=== PATIENT | female | born 1990 | race Caucasian/White ===

== ENCOUNTER 2023-02-18 06:17 | Inpatient (IN) | payer BC ==
[~2023-02-18] VITALS: Ht 154.9 cm; Wt 76.7 kg
[2023-02-18] MEDS ORDERED: NALBUPHINE HCL 10 MG/ML AMP IVP PRN (06:45)
[2023-02-18] MEDS ORDERED: LR 1,000 ML IV SCH (06:45)
[2023-02-18] MEDS ORDERED: LABETALOL HCL 100 MG TABLET PO ONE (06:45)
[2023-02-18] MEDS ORDERED: OXYTOCIN/0.9 % SODIUM CHLORIDE 1,000 ML IV SCH ×2 (06:45→11:30)
[2023-02-18] MEDS ORDERED: TERBUTALINE SULFATE 1 MG/ML VIAL SUBCUT ONE (06:45)
[2023-02-18] MEDS ORDERED: LR 1,000 ML IV ONE (06:45)
[2023-02-18] MEDS ORDERED: AMPICILLIN SODIUM 2 GM VIAL ONE (06:57)
[2023-02-18] MEDS ORDERED: AMPICILLIN SODIUM 2 GM in NS 100 ML IV ONE (07:00)
[2023-02-18 07:20] LABS: BASOPHILS % (AUTO) 0.3 % (0.0-2.0); EOSINOPHILS % (AUTO) 0.2 % (0.0-4.0); HEMATOCRIT 39.9 % (36-48); HEMOGLOBIN 13.4 g/dL (12.0-16.0); LYMPHOCYTES # (AUTO) 1.7 K/uL (1.0-5.5); LYMPHOCYTES % (AUTO) 12.2 % (20.5-51.5); MEAN CORPUSCULAR HEMOGLOBIN 30 pg (27-31); MEAN CORPUSCULAR HGB CONC 34 % (32-36); MEAN CORPUSCULAR VOLUME 89 fL (79.0-98.0); MONOCYTES # (AUTO) 0.8 K/uL (0.0-1.0); NEUTROPHILS # (AUTO) 11.2 K/uL (1.8-7.7); NEUTROPHILS % (AUTO) 81.3 % (40.0-70.0); PLATELET COUNT (AUTO) 132 K/uL (130-430); RED CELL DISTRIBUTION WIDTH 14.5 % (9.0-15.0); WHITE BLOOD COUNT (AUTO) 13.8 K/uL (4.8-10.8)
[2023-02-18] MEDS ORDERED: FENT2mCg/mL-ROPIVA0.2%/NS EPID 200 ML EP SCH (07:30)
[2023-02-18] MEDS ORDERED: fentaNYL CITRATE/PF 100 MCG/2 ML AMP ONE (07:36)
[2023-02-18] MEDS ORDERED: ROPIVACAINE HCL/PF 0.2% 200 ML ONE (07:36)
[2023-02-18] MEDS ORDERED: LIGHT MINERAL OIL 10 ML VIAL MC ONE (07:53)
[2023-02-18] MEDS ORDERED: NALOXONE HCL 0.4 MG/ML AMP (NARCAN) ONE (07:53)
[2023-02-18] MEDS ORDERED: LIDOCAINE PF 1% 30ML(POUR BTL) INJ ONE (07:53)
[2023-02-18] MEDS ORDERED: ePHEDrine sulfate 50 MG/ML VIAL ONE (10:09)
[2023-02-18] MEDS ORDERED: ePHEDrine sulfate 50 MG/ML VIAL IVP ONE (10:30)
[2023-02-18] MEDS ORDERED: AMPICILLIN SODIUM 1 GM in NS 50 ML IV SCH (11:00)
[2023-02-18] MEDS ORDERED: OXYCODONE/ACETAMINOPHEN 5-325 TABLET PO PRN (11:30)
[2023-02-18] MEDS ORDERED: LANOLIN 7 GM OINT. TP PRN (11:30)
[2023-02-18] MEDS ORDERED: ANUSOL 1 EA SUPP.RECT (PREPARATION H) RC PRN (11:30)
[2023-02-18] MEDS ORDERED: DERMOPLAST SPRAY TP PRN (11:30)
[2023-02-18] MEDS ORDERED: HYDROCORTISONE 0.5% CREAM 28.4 GM CREAM.GM. TP PRN (11:30)
[2023-02-18] MEDS ORDERED: OXYTOCIN/0.9 % SODIUM CHLORIDE 1,000 ML IV ONE (11:30)
[2023-02-18] MEDS ORDERED: WITCH HAZEL LEAF 1 MED.PAD MED.PAD TP PRN (11:30)
[2023-02-18 13:04] VITALS: BP_SYST 150
[2023-02-18] MEDS: IBUPROFEN 800 MG TABLET PO PRN (17:56)
[2023-02-18] MEDS ORDERED: SENNOSIDES/DOCUSATE SODIUM 1 TAB TABLET(SENOKOT-S) PO SCH (21:00)
[2023-02-18] MEDS ORDERED: TEMAZEPAM 15 MG CAPSULE PO PRN (21:00)
[2023-02-18] MEDS: OXYCODONE/ACETAMINOPHEN 5-325 TABLET PO PRN (21:42)
[2023-02-18] MEDS: LABETALOL HCL 100 MG TABLET PO SCH (22:04)
[2023-02-19] MEDS: OXYCODONE/ACETAMINOPHEN 5-325 TABLET PO PRN ×3 (00:51→08:38)
[2023-02-19 06:02] LABS: HEMATOCRIT 33.8 % (36-48); HEMOGLOBIN 11.4 g/dL (12.0-16.0)
[2023-02-19] MEDS: LABETALOL HCL 100 MG TABLET PO SCH (08:38)
[2023-02-19] MEDS ORDERED: DOCUSATE SODIUM 100 MG CAPSULE PO SCH (09:00)
[2023-02-19] MEDS: IBUPROFEN 800 MG TABLET PO PRN ×2 (12:16→17:38)
[2023-02-19] MEDS ORDERED: DIPHTH,PERTUSS(ACELL),TET VAC 0.5 ML VIAL (Tdap) I.M. ONE (12:30)
== END 2023-02-19 17:55 | disposition home or self-care (01) | DRG 806 ==
LOC: SPU 06:17 → OBSVTOIN 06:38
PROVIDERS: ADMIT Obstetrics & Gynecology; ATTEND Obstetrics & Gynecology
PROC: 10D07Z6 Extraction of Products of Conception, Vacuum, Via Natural or Artificial Opening (ICD-10-PCS; principal; 2023-02-18)
PROC: 3E0R3BZ Introduction of Anesthetic Agent into Spinal Canal, Percutaneous Approach (ICD-10-PCS; 2023-02-18)
PROC: 00HU33Z Insertion of Infusion Device into Spinal Canal, Percutaneous Approach (ICD-10-PCS; 2023-02-18)
DX: O48.0 Post-term pregnancy (principal); O10.92 Unspecified pre-existing hypertension complicating childbirth; Z37.0 Single live birth; O77.0 Labor and delivery complicated by meconium in amniotic fluid; Z3A.40 40 weeks gestation of pregnancy
CPT/HCPCS: 36415; 81002; 85018; 85025; 86592; 86886; 86900; 86901; 90715; 94760; G0378; J0290; J2001; J2310; J2590; J3010